=== PATIENT | male | born 1985 | race Caucasian/White ===

== ENCOUNTER 2018-03-04 19:49 | Emergency (ER) | payer OTHER ==
[~2018-03-04] VITALS: Ht 175.3 cm; Wt 79.4 kg
[~2018-03-04 19:49] MED LIST: ACETAMINOPHEN-1 EAC1 PO; AFRIN15 ML NS; ALEVE220 MG PO; AMOXICILLIN 50500 M1 PO; AMOXICILLIN500 M1 PO; AMOXICILLIN875 MG PO; BACTRIM DS TAB1 EACH PO; DICLOFENAC SODI75 MG PO; FLEXERIL PO; HYDROCODON-ACE1 EAC7 PO; HYDROCODONE-AP1 EAC6 PO; IBUPROFEN 200200 M1 PO; IBUPROFEN 800800 M1 PO; IBUPROFEN 800800 MG PO; INDOMETHACIN 2525 MG PO; MEDROLDOSEPACK PO; NORCO 5-325 TA1 EAC1 PO; NORCO 5-325 TA1 EACH PO; NYQUIL D COLD295 ML PO; PENICILLIN VK500 M1 PO; PENICILLIN VK500 MG PO; PERCOCET 5-3251 EACH PO; PERCOCET PO; PROAIR HFA8.5 GM PO; SEROQUEL XR150 M1; TESSALON PERLE100 MG PO; ULTRAM 50MG TAB50 MG PO; VICOPROFEN 2001 EAC1 PO; ZPAK PO
[2018-03-04 20:02] VITALS: BP 147/91
[2018-03-04] MEDS ORDERED: NYSTATIN100000 UNI PO (20:10)
== END 2018-03-04 20:19 | disposition home or self-care (01) ==
LOC: M.ERS 19:49
DX: B37.9 Candidiasis, unspecified (principal); F17.210 Nicotine dependence, cigarettes, uncomplicated; Z88.6 Allergy status to analgesic agent

== ENCOUNTER 2018-03-16 12:28 | Emergency (ER) | payer OTHER ==
[~2018-03-16] VITALS: Ht 177.8 cm; Wt 79.4 kg
[~2018-03-16 12:28] MED LIST changes: +NYSTATIN100000 UNI PO
[2018-03-16 12:32] VITALS: BP 144/90
--- NOTE | 2018-03-16 15:54 | EKG ---
[place] [address] ELECTROCARDIOGRAM REPORT Name: JEAN CARLOS SMITH [id number] Admission: 03/16/18 Attend Phys: Discharge: 03/16/18 Date of : 89 Report #: [id number] THIS REPORT FOR: //name// [facility] ED Test Date: 2018-03-16 Test Time: 12:31:34 Pat Name: JEAN CARLOS SMITH Department: Room: Gender: M [employer]: CHETNA : 1985 Requested By: Sam Whitfield Order Number: [id number] MD: Erwin Chong Measurements Intervals [place] Rate: 96 P: -20 AK: 142 QRS: 25 QRSD: 79 T: 52 QT: 339 QTc: 429 Interpretive Statements Sinus rhythm Baseline wander in lead(s) V1 Compared to ECG 05/16/2015 12:01:04 No significant change Electronically Signed On 03-16-2018 15:53:58 CDT by Erwin Chong [email or web address] <ELECTRONICALLY SIGNED> By: Erwin Chong MD, [facility] 03/16/18 1553 1231 1231 Erwin Chong MD, FACC /EPI
== END 2018-03-16 13:06 | disposition home or self-care (01) ==
LOC: M.ERS 12:28
DX: R07.89 Other chest pain (principal); F41.9 Anxiety disorder, unspecified; F17.210 Nicotine dependence, cigarettes, uncomplicated; Z88.8 Allergy status to other drugs, medicaments and biological substances

== ENCOUNTER 2018-06-08 11:28 | Emergency (ER) | payer OTHER ==
[~2018-06-08] VITALS: Ht 177.8 cm; Wt 72.6 kg
[2018-06-08] MEDS ORDERED: TRAMADOL 50 MG50 MG PO (11:45)
[2018-06-08 11:53] VITALS: BP 143/82
== END 2018-06-08 11:55 | disposition home or self-care (01) ==
LOC: M.ERS 11:28
DX: M25.512 Pain in left shoulder (principal); F17.210 Nicotine dependence, cigarettes, uncomplicated; Z88.8 Allergy status to other drugs, medicaments and biological substances